=== PATIENT | female | born 1970 | race Two or more races ===

== ENCOUNTER 2023-06-22 14:59 | Emergency (ER) | payer BC, OTHER ==
[~2023-06-22] VITALS: Ht 162.6 cm; Wt 85.0 kg
[2023-06-22 15:31] VITALS: BP 160/99; PULSE 81; RESP 18; TEMP 97.9; O2SAT 99
[2023-06-22 15:53] LABS: Basophils # (auto) 0 10 ^3/uL (0-0.2); Basophils % (auto) 0.7 % (0.0-2.0); Eosinophils # (auto) 0.1 10 ^3/uL (0-0.8); Eosinophils % (auto) 2.2 % (0.0-7.0); Hematocrit 41.4 % (36.0-46.0); Hemoglobin 14.4 g/dL (12.2-16.2); Lymphocytes # (auto) 0.8 10 ^3/uL (0.4-5.4); Lymphocytes % (auto) 12.7 % (10.0-50.0); Mean Corpuscular Hemoglobin 32.4 pg (28.0-32.0); Mean Corpuscular Hgb Conc. 34.8 g/dL (32.0-36.0); Mean Corpuscular Volume 93.2 fL (80.0-100.0); Monocytes # (auto) 0.4 10 ^3/uL (0-1.3); Monocytes % (auto) 6.4 % (0.0-12.0); Neutrophils # (auto) 4.7 10 ^3/uL (1.6-8.6); Nucleated Red Blood Cells % 0.1 %; Red Blood Cells 4.44 10^6/uL (4.0-5.20); Red Cell Distribution Width 12.9 % (11.8-14.3)
[2023-06-22 16:07] LABS: Chloride 104 mmol/L (98-107); Potassium 4.1 mmol/L (3.5-5.1); Sodium 137 mmol/L (136-145)
[2023-06-22 16:08] LABS: Anion Gap 7 (5-15); Calcium 9.6 mg/dL (8.7-10.4); Carbon Dioxide 26 mmol/L (20-30)
[2023-06-22 16:12] LABS: Uric Acid 4.3 mg/dL (3.1-7.8)
[2023-06-22 16:13] LABS: Glucose 84 mg/dL (74-106)
[2023-06-22] MEDS: EPINEPHrine HCL 1 MG/1 ML AMP SC ONE (16:31)
[2023-06-22] MEDS ORDERED: HYDR50CA PO (16:44)
[2023-06-22] MEDS ORDERED: PRED20TA2 PO (16:44)
[2023-06-22 16:50] LABS: Urine Bacteria FEW /hpf (None Seen); Urine Blood Negative /uL (Negative); Urine Clarity Clear (Clear); Urine Color Yellow (Yellow); Urine Mucus FEW (None Seen); Urine Protein, UAD TRACE (Negative); Urine Specific Gravity 1.033 (1.001-1.035); Urine Urobilinogen Normal (Negative); Urine WBC 1 /hpf (0 - 5)
[2023-06-22 17:16] LABS: BUN/Creatinine Ratio 22.5 (10.0-20.0); Blood Urea Nitrogen 20 mg/dL (9-23)
== END 2023-06-22 16:48 | disposition home or self-care (01) ==
LOC: ER 14:59
DX: T78.49XA Other allergy, initial encounter (principal); I10 Essential (primary) hypertension; X58.XXXA Exposure to other specified factors, initial encounter
CPT/HCPCS: 36415; 80048; 81001; 84550; 85025; 96372; 99283; J0171